=== PATIENT | female | born 1990 | race Caucasian/White ===

== ENCOUNTER → 2021-01-13 07:27 | Outpatient (CLI) | payer OTHER, MEDICAID, SELFPAY ==
[2021-01-13 09:58] LABS: Hematocrit 37.2 % (36-46); Hemoglobin 12.7 g/dL (12.0-16.0); Mean Corpuscular HGB Conc 34.2 % (30-36); Mean Corpuscular Hemoglobin 30.3 PG (26-34); Mean Corpuscular Volume 88.4 fL (80-100); Platelet Count 245 X10^3/uL (150-400); Red Blood Cell Count 4.21 X10^6/uL (4.0-5.2); Red Cell Distribution Width 13.7 % (11.6-14.8); White Blood Cell Count 9.8 X10^3/uL (4.5-11.0)
[2021-01-13 10:39] LABS: GTT (PREG) 1 Hour PP 50gm Dose 58 mg/dL (76-139)
== END ==
PROVIDERS: Referring Provider Nurse Practitioner Obstetrics & Gynecology; Visit Provider Nurse Practitioner Obstetrics & Gynecology
DX: Z34.90 Encounter for supervision of normal pregnancy, unspecified, unspecified trimester (principal); Z13.1 Encounter for screening for diabetes mellitus; Z3A.26 26 weeks gestation of pregnancy
CPT/HCPCS: 36415; 82950; 85027

== ENCOUNTER → 2021-03-13 19:24 | Outpatient (ROUT) | payer OTHER, MEDICAID, SELFPAY | PROVIDERS: Visit Provider Nurse Practitioner Obstetrics & Gynecology | DX: Z34.90 Encounter for supervision of normal pregnancy, unspecified, unspecified trimester (principal); Z36.85 Encounter for antenatal screening for Streptococcus B; Z3A.36 36 weeks gestation of pregnancy | CPT/HCPCS: 87081 ==

== ENCOUNTER 2021-03-31 10:25 | Outpatient (CLI) | payer OTHER, MEDICAID, SELFPAY ==
[2021-03-31 10:53] LABS: Add Manual Diff / Slide Review NO; Basophils Absolute Auto 0 /uL (0-100); Basophils Percent Auto 0.4 % (0-2); Eosinophils Absolute Auto 100 /uL (0-450); Eosinophils Percent Auto 0.9 % (2-4); Hematocrit 39.6 % (36-46); Hemoglobin 13.5 g/dL (12.0-16.0); Lymphocytes Absolute Auto 2000 /uL (1100-4500); Lymphocytes Percent Auto 22.2 % (25-40); Mean Corpuscular Hemoglobin 29.8 PG (26-34); Mean Corpuscular Volume 87.7 fL (80-100); Monocytes Absolute Auto 900 /uL (0-900); Monocytes Percent Auto 9.8 % (3-14); Neutrophils Absolute Auto 5900 /uL (1500-7000); Neutrophils Percent Auto 66.7 % (50-75); Platelet Count 235 X10^3/uL (150-400); Red Blood Cell Count 4.52 X10^6/uL (4.0-5.2); Red Cell Distribution Width 13.9 % (11.6-14.8); White Blood Cell Count 8.9 X10^3/uL (4.5-11.0)
[2021-03-31 11:10] LABS: Aspartate Aminotransferase 29 IU/L (14-36); BUN Creatinine Ratio 13.6 (6-22); Blood Urea Nitrogen 6 mg/dL (7-17); Estimated Glomerular Filt Rate > 60.0 mL/min (>60); Uric Acid 4.1 mg/dL (2.5-6.2)
--- NOTE | 2021-03-31 12:43 | PM.OBTRLD ---
Visit Information Visit Information Date of evaluation: 03/31/21 Primary OB Provider: Negin Chatterjee On-call OB Provider: Negin Chatterjee Reason for Evaluation: Yes non-stress test Comments/Additional reasons for admission: 31YO @ 37wks3 days here for evaluation of elevated BP in clinic. no MONDRAGON, vision changes, RUQ pain or increased edema. Lots of FM and BH ctx. No VB or LOF. Vital Signs Vital Signs: BP 102/61, HR 75bppm, RR 16/min, T 97.5F Temporal Review of Systems Review of Systems ROS: Yes All systems reviewed with the patient and are negative except as otherwise documented Exam Vital Signs (past 8 hours): see above Presentation: vertex Objective Labs Result Diagrams: 03/31/21 10:32 03/31/21 10:46 Labs: Laboratory Results - last 24 hr 03/31/21 03/31/21 10:32 10:46 WBC 8.9 RBC 4.52 Hgb 13.5 Hct 39.6 MCV 87.7 MCH 29.8 MCHC 34.0 RDW 13.9 Plt Count 235 Neut % (Auto) 66.7 Lymph % (Auto) 22.2 L [place] % (Auto) 9.8 Eos % (Auto) 0.9 L Baso % (Auto) 0.4 Neut # (Auto) 5900 Lymph # (Auto) 2000 [place] # (Auto) 900 Eos # (Auto) 100 Baso # (Auto) 0 BUN 6 L Creatinine 0.44 L Estimated GFR > 60.0 BUN/Creatinine Ratio 13.6 Uric Acid 4.1 AST 29 Evaluation Evaluation Baseline heart rate: 120 Variability: Moderate (11-25) monitor accelerations: Present Monitor Decelerations: Absent Contraction Frequency (minutes): 3 Uterine Contraction Intensity: Mild Category of Tracing: Reactive Diagnosis, Plan/Disposition Final Diagnosis (1) Elevated blood pressure reading without diagnosis of hypertension: Status: Acute Plan/Disposition Plan: No concern for GHTN or preeclampsia. Discharge to home with routine precautions. RTC as previously scheduled.
== END 2021-03-31 11:45 | disposition home or self-care (01) ==
LOC: LABOR 11:13 → OB 04-01 07:38
PROVIDERS: Referring Provider Nurse Practitioner Obstetrics & Gynecology; Visit Provider Nurse Practitioner Obstetrics & Gynecology
DX: O26.893 Other specified pregnancy related conditions, third trimester (principal); R03.0 Elevated blood-pressure reading, without diagnosis of hypertension; Z3A.37 37 weeks gestation of pregnancy
CPT/HCPCS: 59025; 84450; 84550; 85025; G0378; G0379

== ENCOUNTER 2021-04-11 23:23 | Inpatient (IN) | payer OTHER, MEDICAID, SELFPAY ==
--- NOTE | 2021-04-11 23:36 | PM.OBHP.1 ---
OB HPI Date/Time Date of admission: 04/11/21 Date Patient Seen: 04/11/21 Time Patient Seen: 23:36 History of Present Condition Chief complaint: eval of labor : 2 Para: 1 Estimated Date of Delivery: 04/18/21 Estimated Gestational Age (weeks): 39 Narrative: Brad Tamayo is a 31 year old female @ 39wks by LMP and 10wk US who presents for evaluation of labor. Was having mild contractions all day. Contractions sstrengthened around 1850 and have continued to progress in frequency and intensity. now breathing through regular contractions. Has noticed some mucus plug and bloody show. No LOF. Uncomplicated PN care w/ CNM. Desires low intervention . History of Present care: good care, initiated at week # (10), number of visits (10) and pounds weight gain (21) Ultrasounds: normal mid trimester US Obstetrical complications: none Medical complications: none Preadmission Labs Blood type: O (+) positive -: Antibody screen: negative, GBS status: negative, HBsAG: negative, HIV: negative and RPR/VDLR: negative -: Chlamydia screen: not detected and Gonorrhea screen: not detected -: Rubella: immune HCT: 37.2 HCAB: negative Integrated screen: negative 1 hr GTT: 58 Prior (ies) History: 08/27/2018: NSVB @ 05awk1m, 6#15oz male, epidural, no complications Evaluation Evaluation Baseline heart rate: 120 Variability: Moderate (11-25) monitor accelerations: Present Monitor Decelerations: Variable (single, ricci ) Contraction Frequency (minutes): 3 Uterine Contraction Intensity: Moderate Category of Tracing: Reactive Status: Category ll (overall reassuring) Cervical dilation (cm): 3 Cervical effacement (%): 90 station: -3 PFSH Medical History (Updated 04/12/21 @ 00:13 by Negin Chatterjee CNM) Anxiety Social History (Updated 04/12/21 @ 00:15 by Negin Chatterjee CNM) marital status: household members: spouse lives independently: Yes caregiver/support person: No housing: house education level: college current occupational exposures/hazards: No Smoking Status: Former smoker substance use type: does not use Meds Home Medications and Allergies Home Medications Medication Instructions Recorded Confirmed Type No Known Home Medications 04/12/21 04/12/21 History Allergies Allergy/AdvReac Type Severity Reaction Status Date / Time No Known Drug Allergies Allergy Verified 04/12/21 00:50 Review of Systems Review of Systems ROS: Yes All systems reviewed with the patient and are negative except as otherwise documented Exam Vital Signs (past 8 hours): BP 117/67mmHg, HR 85bpm, T 35.8C Temporal Presentation: vertex Objective Labs Result Diagrams: 04/12/21 00:30 Assessment and Plan Assessment and Plan Assessment and Plan narrative: Term primipara Approaching active labor No indication for GBS prophylaxis Cat II FHR, overall reassuring P: Admit, routine orders. May switch to IA. Close labor support. Reassess in 4 hours or sooner, PRN.
[2021-04-12 00:29] VITALS: BP 117/56
[2021-04-12 00:47] LABS: Add Manual Diff / Slide Review NO; Basophils Absolute Auto 0 /uL (0-100); Basophils Percent Auto 0.2 % (0-2); Eosinophils Absolute Auto 100 /uL (0-450); Eosinophils Percent Auto 0.6 % (2-4); Hematocrit 38.5 % (36-46); Hemoglobin 13.1 g/dL (12.0-16.0); Lymphocytes Absolute Auto 1900 /uL (1100-4500); Mean Corpuscular HGB Conc 34.1 % (30-36); Mean Corpuscular Hemoglobin 29.8 PG (26-34); Mean Corpuscular Volume 87.3 fL (80-100); Monocytes Absolute Auto 1000 /uL (0-900); Monocytes Percent Auto 7.3 % (3-14); Neutrophils Absolute Auto 10900 /uL (1500-7000); Neutrophils Percent Auto 77.9 % (50-75); Platelet Count 227 X10^3/uL (150-400); Red Blood Cell Count 4.41 X10^6/uL (4.0-5.2); Red Cell Distribution Width 13.6 % (11.6-14.8)
[2021-04-12 01:47] LABS: COVID19 - ADMIT (NP swab/PCR) Negative (Negative)
--- NOTE | 2021-04-12 03:58 | PM.OBPNLAB ---
Date/Time Date Patient Seen: 04/12/21 Time Patient Seen: 03:58 Pain Control Pain control: epidural Pelvic Exam Dilation (cm): 7 Effacement (%): 90 station: -1 Amniotic membrane status: Intact Contractions Date/Time contractions began: 04/11/2021 @ 1850 labor onset 04/11/2021 @ 2345 Contractions on admission: regular Monitor mode: External Pitocin rate (mU/min): 0 Contraction frequency (min): 3 Contraction duration (min): 1 Contraction pattern: Regular Contraction phase: Resting Contraction intensity: Moderate Status status: Category l Heart Rate Baseline: 115 Monitor Accelerations: Present Monitor Decelerations: Absent Monitor Variability: Moderate Assessment and Plan Assessment: active labor Plan: other (Continue expectant management of labor. Encourage frequent position changes w/ peanut ball. Reassess in 4 hours or sooner, PRN.)
--- NOTE | 2021-04-12 06:19 | PM.OBPRVD ---
Labor & Delivery Delivery date: 04/12/21 Intrapartal Events: None Cervical ripening method: none Induction method: none Delivery monitor: external FHT and external uterine Route of delivery: Episiotomy description: None L&D Laceration Description: None Estimated blood loss (mL): 100 Anesthesia Type: Epidural Narrative: Brad labored comfortably with an epidural. When early decelerations were seen and cervical exam was performed: C/C/0. Brad pushed well with minimal coaching. NSVB of a vigorous baby boy in SHAYY position with a single loose nuchal cord. [place] was lifted to maternal abdomen for drying and skin to skin. After cessation of pulsation, the cord was double clamped by CNM and cut by FOB. 20 units of picotin was added to remaining 700mL LR for AMTSL. Hospital cord blood sample was collected. Gentle cord traction and single maternal push led to spontaneous, Schultze delivery of an apparently intact placenta, membranes and 3VC. Fundus immediately firm and bleeding minimal. Vagina and perineum inspected and intatc. QBL 100mL. Both mother and baby stable and skin to skin as I left the room. Baby 1: Infant gender: Male Presentation: vertex Position: Right Occiput Anterior Placenta delivery description: Spontaneous Cord Vessel Description: 3 Vessels, Nuchal Cord and Loose score (1 min): 9 score (5 min): 9 weight: 3.23 kg Plan for aftercare: Routine care
[2021-04-12] MEDS: KETOROLAC 30 MG/ML VIAL IV (07:43)
[2021-04-12 09:03] VITALS: TEMP 36.7
[2021-04-12] MEDS: LANOLIN OINT 7 GM 1 APPLIC TOP (09:03)
[2021-04-12 15:55] VITALS: TEMP 36.6
[2021-04-12] MEDS: IBUPROFEN 600 MG TABLET PO ×2 (15:55→22:04)
[2021-04-12 18:00] VITALS: TEMP 36.8
[2021-04-13] MEDS: IBUPROFEN 600 MG TABLET PO ×2 (05:00→10:43)
--- NOTE | 2021-04-13 08:36 | PM.OBDS.1 ---
Discharge Providers Provider Date of admission: 04/11/21 23:23 Discharge Date: 04/13/21 Consults: 04/13/21 06:17 Consult to Rocket Engine Component Mechanic Routine Comment: Discharge provider: Negin Chatterjee CNM Summary Hospital Course Date Patient Seen: 04/13/21 Time Patient Seen: 08:44 Diagnoses: o80 Hospital Course: rBad is voiding, ambulating and independently on day 1 s/p NSVB. She is tolerating a general diet well. Has not had a bowel movement. Bleeding is light, no clots. Minimal vaginal pain is well controlled with ibuprofen and Tylenol. Peripartum Data Infant Delivery Method: Natural Vaginal Laceration Description: None complications: none 1: Gender: Male Disposition of : home Discharge Diagnosis (1) Encounter for full-term uncomplicated delivery: Start Date: 04/12/21 Start Time: 05:59 Status: Acute Status at Discharge Cognitive/behavioral status at discharge: oriented and calm Functional status at discharge: independent ambulation Overall status at discharge: patient is progressing back to baseline Time Spent with Patient Time attestation: Total time spent providing and/or coordinating discharge services: Time spent: Less than 30 minutes Objective Labs Result Diagrams: 04/12/21 00:30 Exam Vital Signs (past 8 hours): Bp 108/85mmHg, HR 92bpm, RR 16/min, T 97.2F Temporal Other: Fudus firm @ U-1, lochia scant to moderate, no clots, perineum intact Discharge Plan Discharge Plan Patient Disposition: Home Discharge orders & Medications Prescriptions: New ibuprofen 600 mg Tablet 600 mg PO Q6HR PRN (Reason: Pain, Mild (1-3)) 14 Days Qty: 60 RF: 0 No Action No Known Home Medications RF: 0 Follow up/Referrals: Negin Chatterjee CNM [[employer] Of [employer]] - (Follow-up by Telehealth 04/26/21 @ 1145 Follow-up in office 05/26/21 @ 1100) Diet/Activity/Treatments Diet: Regular Activity: pelvic rest x 6 weeks Skin/Wound/Dressing Care Report to your healthcare provider any signs of infection, such as:: chills, fever, increased pain, unusual drainage and unusual redness Visit Report/Discharge Packet Instructions: Depression
[2021-04-13 09:18] VITALS: BP 117/56; TEMP 36.8
[2021-04-13 09:35] VITALS: BP 125/80; PULSE 90; RESP 18; TEMP 35.9
[2021-04-13 10:43] VITALS: TEMP 35.9
== END 2021-04-13 11:10 | disposition home or self-care (01) | DRG 560 ==
PROVIDERS: Admitting Provider Nurse Practitioner Obstetrics & Gynecology; Referring Provider Nurse Practitioner Obstetrics & Gynecology; Visit Provider Nurse Practitioner Obstetrics & Gynecology
DX: O69.81X0 Labor and delivery complicated by cord around neck, without compression, not applicable or unspecified (principal); Z3A.39 39 weeks gestation of pregnancy; Z37.0 Single live birth; Z20.822 Contact with and (suspected) exposure to COVID-19
CPT/HCPCS: 01967; 36415; 59050; 85025; 86850; 86900; 86901; 87635; C9803; G0379; J1885

== ENCOUNTER 2023-02-04 17:22 | Inpatient (IN) | payer OTHER, MEDICAID, SELFPAY ==
--- NOTE | 2023-02-04 17:56 | PM.OBHP.1 ---
OB HPI Date/Time Date of admission: 02/04/23 Date Patient Seen: 02/04/23 Time Patient Seen: 17:57 History of Present Condition Chief complaint: LABOR : 3 Para: 2 Estimated Date of Delivery: 02/08/23 Estimated Gestational Age (weeks): 39w3d Narrative: Brad Tamayo is a 32 year old female at 39w3d by LMP. She called approx 1600 unsure about leaking fluid, with contractions q 6 min and getting more intense. Was unsure if she wanted to come in yet, and then texted with ETA of 1610. Brad arrived to L&D actively steven and did not have any fluid leaking on the way here in the car. Well supported by her , Emil, and their investigator claims, Krystal. Desired SVE on admission. Brad had a normal only complicated by COVID infection in October, and growth ultrasound showing >99% at 27 weeks. She began her care with the [facility] and transferred back to [facility] at 31 weeks, where she got care for her 2nd in 2019, a son, Ashley. Brad and Emil lost their first son, Robin, at 5 months of age in a tragic accident. History of Present care: good care, initiated at week # (10), number of visits (7) and pounds weight gain (32) Dating criteria: LMP confirmed by 1st trimester US Ultrasounds: normal 1st trimester US, normal mid trimester US and other (Growth US at 27 weeks; EFW >99%ile) Obstetrical complications: none Medical complications: none Preadmission Labs Blood type: O (+) positive -: Antibody screen: negative, Cystic fibrosis screen: unknown, GBS status: negative, HBsAG: negative, HIV: negative, HSV 1: unknown, HSV 2: unknown and RPR/VDLR: negative -: Chlamydia screen: not detected and Gonorrhea screen: not detected -: Rubella: immune and Varicella: unknown HCT: 40 HCAB: negative PAP: Normal Cell-free DNA: Negative, surprise sex 1 hr GTT: 96 Prior (ies) History: 08/2018 at 39 weeks 04/2021 at 39 weeks Evaluation Evaluation Dilation (cm): 5 Effacement (%): 80 Dilation: >/=5 cm Effacement: >/=80% station: -1 Position of cervix: anterior Consistency: soft Zimmerman score: 12 PFSH Medical History Anxiety Social History marital status: household members: spouse lives independently: Yes caregiver/support person: No housing: house education level: college current occupational exposures/hazards: No Smoking Status: Former smoker substance use type: does not use Meds Home Medications and Allergies Allergies Allergy/AdvReac Type Severity Reaction Status Date / Time No Known Drug Allergies Allergy Verified 04/23/21 10:05 Review of Systems Review of Systems Narrative: Negative except as noted in HPI OB Exam Vital signs Blood Pressure: 135/80 Pulse Rate: 69 Respiratory Rate: 18 Temperature: 97.8 F HENMT Head: normal to inspection and normocephalic Resp Effort & Inspection: normal respiratory effort and able to speak in complete sentences Cardio Rate: regular rate Rhythm: regular rhythm Heart Sounds: S1 normal, S2 normal and normal, physiologic split S2 Extremities Lower extremity: Yes normal to inspection DTR's: Rt Patellar: 3+ GI Inspection: normal to inspection Presentation: vertex Estimated Weight (lbs): 8 Other: SVE 5/80/-2/soft/anterior Intact membranes; bulging bag of water felt during exam Assessment and Plan Assessment and Plan Assessment and Plan narrative: 32 years old at 39w3d by LMP GBS neg Rh pos Active labor FHR reassuring by doppler Admit to L&D. Epidural as desired Anticipate
[2023-02-04 18:12] LABS: Add Manual Diff / Slide Review NO; Basophils Absolute Auto 0 /uL (0-100); Basophils Percent Auto 0.3 % (0-2); Eosinophils Absolute Auto 100 /uL (0-450); Eosinophils Percent Auto 0.8 % (2-4); Hematocrit 39.7 % (36-46); Hemoglobin 13.5 g/dL (12.0-16.0); Lymphocytes Absolute Auto 1700 /uL (1100-4500); Lymphocytes Percent Auto 16.4 % (25-40); Mean Corpuscular HGB Conc 33.9 % (30-36); Mean Corpuscular Hemoglobin 29.9 PG (26-34); Mean Corpuscular Volume 88.3 fL (80-100); Monocytes Absolute Auto 1000 /uL (0-900); Monocytes Percent Auto 9.5 % (3-14); Neutrophils Absolute Auto 7600 /uL (1500-7000); Platelet Count 228 X10^3/uL (150-400); Red Cell Distribution Width 13.8 % (11.6-14.8); White Blood Cell Count 10.4 X10^3/uL (4.5-11.0)
--- NOTE | 2023-02-04 19:00 | PM.AN.REGBLK ---
Regional Block Pre-procedure Attending OB provider: Christiane Madison PMH/ROS narrative: Hx anxiety. ASA Class: II Labs: Hct 39.7 % (36-46) 02/04/23 17:50 Plt Count 228 X10^3/uL (150-400) 02/04/23 17:50 Medications: Current Medications Generic Name Dose Route Start Last Admin Trade Name Freq PRN Reason Stop Dose Admin Calcium Carbonate 1,000 mg 02/04/23 17:52 Calcium Carbonate 500 Mg Tab PO Q4HR PRN Dyspepsia Carboprost Tromethamine 250 mcg 02/04/23 17:52 Carboprost 250 Mcg/Ml Ampul IM Q90M PRN Bleeding Diphenhydramine HCl 25 mg 02/04/23 18:58 Diphenhydramine 50 Mg/Ml Vial IV Q10M PRN Pruritis Fentanyl 100 mcg 02/04/23 17:52 Fentanyl 100 Mcg/2 Ml Inj IV Q1H PRN Pain, Severe (7-10) Oxytocin/Lactated Ringer's 30 unit in 500 mls @ 200 mls/hr 02/04/23 17:52 Oxytocin Premix IV CONT PRN Bleeding Protocol Tranexamic Acid 1,000 mg/ 100 mls @ 200 mls/hr 02/04/23 17:52 Sodium Chloride IV NOW PRN Bleeding Lactated Ringer's 1,000 mls @ 100 mls/hr 02/04/23 18:00 Lactated Ringers IV CONT MORA Lidocaine HCl 20 ml 02/04/23 17:52 Lidocaine 1% 20 Ml INJ INTRA-OP PRN Post Delivery Methylergonovine Maleate 0.2 mg 02/04/23 17:52 Methylergonovine 0.2 Mg Tablet PO Q6HR PRN Heavy Bleeding Methylergonovine Maleate 0.2 mg 02/04/23 17:52 Methylergonovine 0.2 Mg/Ml Vial IM NOW PRN Bleeding Misoprostol 800 mcg 02/04/23 17:52 Misoprostol 200 Mcg Tablet IL NOW PRN Bleeding Misoprostol 400 mcg 02/04/23 17:52 Misoprostol 200 Mcg Tablet SL NOW PRN Bleeding Naloxone HCl 0.2 mg 02/04/23 17:52 Naloxone 0.4 Mg/Ml Vial IV Q2MIN PRN Opiate Reversal Ondansetron HCl 4 mg 02/04/23 17:52 Ondansetron 4 Mg/2 Ml Inj IV Q4HR PRN Nausea And Vomiting Oxytocin 10 unit 02/04/23 17:52 Oxytocin 10 Unit/Ml Vial IM NOW PRN Bleeding Allergies: Allergies Allergy/AdvReac Type Severity Reaction Status Date / Time No Known Drug Allergies Allergy Verified 04/23/21 10:05
[2023-02-04 19:21] VITALS: BP 135/80; PULSE 69; RESP 18; TEMP 36.6
--- NOTE | 2023-02-04 19:46 | PM.OBPRVD ---
Labor & Delivery Delivery date: 02/04/23 Intrapartal Events: None Cervical ripening method: none Induction method: none Delivery augmentation: rupture of membranes Delivery monitor: external FHT Route of delivery: Episiotomy description: None L&D Laceration Description: None Quantitative Blood Loss: 75 Anesthesia Type: General Narrative: Urge to push while sitting up for epidural. Was checked and found to be completely dilated. Patient elected AROM to help speed second stage, rather than continue sitting up for epidural placement. AROM for clear fluid followed immediately by . NSVB of a vigorous baby boy in SHAYY position with a single loose nuchal cord and easy delivery of the shoulders. Anesthesia provider stood by for the and 2 CNMs were present to attend. placed on maternal abdomen for drying and skin to skin after reduction of the nuchal cord. Pitocin ordered for active management of the third stage. After cessation of pulsation, the cord was double clamped by CNM and cut by FOB. Gentle cord traction and a single maternal push led to spontaneous Schultze delivery of an apparently intact placenta, membranes and 3VC. Fundus immediately firm and bleeding scant. Vagina and perineum inspected and intact. QBL 75mL. Pitocin was not yet started by RN and was cancelled at this time. Both mother and baby stable and skin to skin as I left the room. [place] Baby 1: Infant gender: Male Presentation: vertex Position: Right Occiput Anterior Placenta delivery description: Spontaneous Cord Vessel Description: 3 Vessels, Nuchal Cord and Loose score (1 min): 8 score (5 min): 9 weight: 3.72 kg Plan for aftercare: Routine care
[2023-02-04 20:42] VITALS: BP 135/80
--- NOTE | 2023-02-05 10:44 | P.DS_ITS ---
Discharge Providers Provider Date of admission: 02/04/23 17:22 Discharge Date: 02/05/23 Primary care physician: Doctor Coby MD Consults: 02/05/23 19:44 Consult to Cottonseed Meat Presser Routine Comment: Discharge provider: Negin Chatterjee CNM Summary Hospital Course Date Patient Seen: 02/05/23 Time Patient Seen: 10:45 Diagnoses: O80 (NSVB) Hospital Course: PPD1: Stable s/p NSVB with no lacerations or complications. Voiding, ambulating and independently. Tolerating a general diet. Vaginal bleeding is light, without clots. Has been skin to skin with her baby since the . Eager for discharge to home as soon as possible. Peripartum Data Delivery Method: Natural Vaginal Laceration Description: None Episiotomy description: None complications: none [place] 1: Gender: Male Disposition of : home Discharge Diagnosis (1) Encounter for full-term uncomplicated delivery: Status: Acute Problem Details: Routine course Status at Discharge Cognitive/behavioral status at discharge: oriented and calm Functional status at discharge: independent ambulation Overall status at discharge: patient is progressing back to baseline Time Spent with Patient Time attestation: Total time spent providing and/or coordinating discharge services: Objective Labs 02/04/23 17:50 Labs: Laboratory Results - last 24 hr 02/04/23 02/04/23 17:50 17:50 WBC 10.4 RBC 4.50 Hgb 13.5 Hct 39.7 MCV 88.3 MCH 29.9 MCHC 33.9 RDW 13.8 Plt Count 228 Neut % (Auto) 73.0 Lymph % (Auto) 16.4 L [place] % (Auto) 9.5 Eos % (Auto) 0.8 L Baso % (Auto) 0.3 Neut # (Auto) 7600 H Lymph # (Auto) 1700 [place] # (Auto) 1000 H Eos # (Auto) 100 Baso # (Auto) 0 Blood Type O Positive Antibody Screen Negative Exam Vital Signs (past 8 hours): BP 97/55mmHg, HR 63bpm, T 36.6C Temporal Other: Fundus firm @ U-1, lochia scant, no clots. Perineum intact with minimal edema. Discharge Plan Discharge Plan Patient Disposition: Home Discharge orders & Medications Prescriptions: New ibuprofen 600 mg Tablet 600 mg PO Q6HR PRN (Reason: Pain, Mild (1-3)) 14 Days Qty: 60 0RF Follow up/Referrals: Doctor Tenorio MD [Primary Care Provider] - Negin Chatterjee CNM [Advanced Offset Proof Press Operator] - (Follow-up with CNMs in 2 weeks and 6 weeks, as scheduled. Appointment confirmations are in your email.) Diet/Activity/Treatments Diet: Regular Activity: pelvic rest x 6 weeks Skin/Wound/Dressing Care Report to your healthcare provider any signs of infection, such as:: chills, fever, increased pain, unusual drainage and unusual redness Visit Report/Discharge Packet Instructions: DI for Depression Stand Alone Forms: Patient Portal/API Discharge Data Primary Care Provider: Doctor Coby
[2023-02-05 14:24] VITALS: BP 113/63; PULSE 76; RESP 16; TEMP 36.2
== END 2023-02-05 15:20 | disposition home or self-care (01) | DRG 560 ==
PROVIDERS: Advanced Practice Midwife; Admitting Provider Nurse Practitioner Obstetrics & Gynecology; Referring Provider Nurse Practitioner Obstetrics & Gynecology; Visit Provider Nurse Practitioner Obstetrics & Gynecology
DX: O80 Encounter for full-term uncomplicated delivery (principal); Z3A.39 39 weeks gestation of pregnancy; Z37.0 Single live birth
CPT/HCPCS: 36415; 59050; 85025; 86850; 86900; 86901; G0379